=== PATIENT | female | born 1990 | race Hispanic/Latino ===

== ENCOUNTER 2019-09-30 09:08 | Day surgery (SDC) | payer OTHER ==
[~2019-09-30] VITALS: Ht 154.9 cm; Wt 55.0 kg
[~2019-09-30 09:08] MED LIST: LIDOCAINE 1% MDV 20ML VIAL SQ PRN; LR 1,000 ML IV ONE
[2019-09-30] MEDS ORDERED: PROAAER10 INH (09:28)
[2019-09-30 10:01] LABS: HEMOGLOBIN 13.4 g/dl (12.0-15.5); MEAN CORPUSCULAR HEMOGLOBIN 28.2 pg (27.0-33.0); MEAN CORPUSCULAR HGB CONC 31.9 g/dl (32.0-36.5); MEAN CORPUSCULAR VOLUME 88.2 fl (80.0-96.0); PLATELET COUNT, AUTOMATED 168 10^3/uL (150-450); RED BLOOD COUNT 4.76 10^6/uL (4.00-5.40); WHITE BLOOD COUNT 5.8 10^3/uL (4.0-10.0)
[2019-09-30 10:11] LABS: HCG, SERUM QUALITATIVE NEGATIVE (NEGATIVE)
[2019-09-30] MEDS ORDERED: ROCURONIUM BROMIDE 50 MG/5 ML VIAL As Ordered ONE (10:34)
[2019-09-30] MEDS ORDERED: LIDOCAINE 2% 100MG/5ML SDV (FOR ANES.) As Ordered ONE (10:34)
[2019-09-30] MEDS ORDERED: propofoL 200 MG/20 ML VIAL As Ordered ONE (10:34)
[2019-09-30] MEDS ORDERED: dexameTHASONE 4 MG/ML 1ML VIAL (J1100 PER 1MG) As Ordered ONE (10:34)
[2019-09-30] MEDS ORDERED: ONDANSETRON 4MG/2ML VIAL As Ordered ONE (10:34)
[2019-09-30] MEDS ORDERED: ACETAMINOPHEN 1000MG 100ML IV BTL (OFIRMEV) (J0131 PER 10MG) As Ordered ONE (10:34)
[2019-09-30] MEDS ORDERED: fentaNYL 250 MCG/5 ML INJECTION (J3010) As Ordered ONE (10:35)
[2019-09-30] MEDS ORDERED: MIDAZOLAM INJ 2MG/2ML VIAL (J2250 PER 1MG) As Ordered ONE (10:35)
[2019-09-30] MEDS ORDERED: BUPIVACAINE/EPIN 0.25% 30 ML VIAL As Ordered ONE (11:12)
[2019-09-30] MEDS ORDERED: ePHEDrine SULFATE 25 MG/5 ML(5MG/ML) SYRINGE As Ordered ONE (11:51)
[2019-09-30] MEDS ORDERED: SUGAMMADEX SODIUM 500 MG/5 ML VIAL (BRIDION) As Ordered ONE (12:10)
--- NOTE | 2019-09-30 12:42 | POST-OPPD ---
Postoperative Procedure Note Date Of Procedure: Sep 30, 2019 PREOPERATIVE DIAGNOSIS: 1. satisfied parity POSTOPERATIVE DIAGNOSIS: 1. satisfied parity FINDINGS: normal appearing uterus, bilateral ovaries and fallopian tubes. PROCEDURE: laparoscopic bilateral salpingectomy SURGEON: Skyla Carrillo DO MEDICAL BILLER: Regis Posada MD ANESTHESIA: General SPECIMENS: Bilateral fallopian tubes ESTIMATED BLOOD LOSS: 5cc REPLACED: 1100 cc LR DRAINS: 300cc urine COMPLICATIONS: none POSTOPERATIVE CONDITION: stable Laparoscopic findings: Normal appearing uterus, bilateral ovaries and fallopian tubes. Anterior cul-de-sac without lesion. Posterior cul-de-sac without lesion. Liver edge and gallbladder normal appearing. Description of procedure: The risks, benefits, indications and alternatives of the procedure were reviewed with the patient and informed written consent was obtained. The patient was taken to the operating room with IV running. She was placed under general anesthesia with endotracheal tube. Arms tucked. Patient placed in lithotomy. The abdomen, vagina and perineum were prepped and draped in the usual sterile fashion. Loyola inserted. Moist sponge stick placed vaginally for uterine manipulation. Small incision made in umbilicus. Veres needle introduced. Saline drop test confirmed intraabdominal placement. Abdo men insufflated with CO2. Five mm trocar introduced under direct visualization. Surveys reviews no bowel injury or bleeding. Two 5mm ports placed left lower abdomen with direct visualization. Findings as above. Ligasure device used to remove bilateral fallopian tubes. Surgical area inspected for hemostasis. Abdomen desuflated. Camera and instruments removed from abdomen. Incision sites closed with 4-O monocryl and dermabond. Loyola and sponge stick removed from the vagina. Count correct x 2. Patient was taken out of OR in stable condition. SKYLA CARRILLO DO Sep 30, 2019 12:37
[2019-09-30] MEDS ORDERED: ONDANSETRON 4MG/2ML VIAL IV PRN (12:45)
[2019-09-30] MEDS ORDERED: LR 1,000 ML IV SCH (12:45)
[2019-09-30] MEDS ORDERED: oxyCODONE 5MG TAB PO PRN (12:45)
[2019-09-30] MEDS ORDERED: HYDROMORPHONE HCL 0.5 MG/ 0.5 ML SYRINGE (J1170 PER 1) IV PRN (12:45)
[2019-09-30] MEDS ORDERED: fentaNYL 100 MCG/2 ML INJECTION (J3010) IV PRN (12:45)
[2019-09-30 13:55] VITALS: BP 113/79
== END 2019-09-30 14:00 | disposition home or self-care (01) ==
LOC: M SDC 09:08
PROVIDERS: ATTEND Obstetrics & Gynecology
DX: Z30.2 Encounter for sterilization (principal); J45.909 Unspecified asthma, uncomplicated; Z79.51 Long term (current) use of inhaled steroids; Z87.891 Personal history of nicotine dependence
CPT/HCPCS: 36415; 58661; 84703; 85027; 86850; 86900; 86901; 88302; J0131; J1100; J2250; J2405; J3010

== ENCOUNTER 2021-03-24 14:01 | Emergency (ER) | payer OTHER ==
[~2021-03-24] VITALS: Ht 154.9 cm; Wt 49.6 kg
[~2021-03-24 14:01] MED LIST changes: -LIDOCAINE 1% MDV 20ML VIAL SQ PRN; -LR 1,000 ML IV ONE; +PROAAER10 INH
[2021-03-24] MEDS ORDERED: FAMOTIDINE INJ 20MG/2ML VIAL (S0028 PER 1) IVP ONE (19:25)
[2021-03-24] MEDS ORDERED: diphenhydrAMINE 50MG/ML VIAL (J1200) IV ONE (19:25)
[2021-03-24] MEDS ORDERED: methylPREDNISolone 125MG 2ML VIAL IV ONE (19:25)
[2021-03-24] MEDS ORDERED: NS 1,000 ML IV ONE (19:25)
[2021-03-24] MEDS ORDERED: EPIN0.3I11 SQ (20:07)
[2021-03-24] MEDS ORDERED: PRED10TA2 (20:07)
[2021-03-24] MEDS ORDERED: HYDR-643 (20:07)
[2021-03-24] MEDS ORDERED: MONT10TA97 PO (20:07)
[2021-03-24 20:10] LABS: APPEARANCE, URINE HAZY (CLEAR); BACTERIA, URINE AUTO NEGATIVE (NEGATIVE); BASO % 0.4 % (0.0-1.0); BILIRUBIN, URINE AUTO NEGATIVE (NEGATIVE); BLOOD, URINE BLOOD NEGATIVE (NEGATIVE); COLOR, URINE YELLOW (YELLOW); EOS % 0.4 % (0.0-3.0); GLUCOSE, URINE (UA) AUTO NEGATIVE (NEGATIVE); HEMATOCRIT 41.7 % (36.0-47.0); HEMOGLOBIN 13.7 g/dl (12.0-15.5); KETONE, URINE AUTO TRACE mg/dL (NEGATIVE); LEUKOCYTE ESTERASE, URINE AUTO NEGATIVE (NEGATIVE); LYMPH # 1.2 10^3/uL (1.5-5.0); LYMPH % 14.8 % (24.0-44.0); MEAN CORPUSCULAR HEMOGLOBIN 28.3 pg (27.0-33.0); MEAN CORPUSCULAR HGB CONC 32.9 g/dl (32.0-36.5); MEAN CORPUSCULAR VOLUME 86.2 fl (80.0-96.0); MONO # 0.5 10^3/uL (0.0-0.8); MONO % 6.2 % (2.0-8.0); MUCUS, URINE SMALL (NEGATIVE); NEUTROPHILS % 77.4 % (36.0-66.0); NITRITE, URINE AUTO NEGATIVE (NEGATIVE); PLATELET COUNT, AUTOMATED 332 10^3/uL (150-450); PROTEIN, URINE AUTO NEGATIVE (NEGATIVE); RBC, URINE AUTO 3 /HPF (0-3); RED BLOOD COUNT 4.84 10^6/uL (4.00-5.40); SPECIFIC GRAVITY URINE AUTO 1.019 (1.002-1.035); SQUAMOUS EPITHELIAL CELL UR AU 0 /HPF (0-6); UROBILINOGEN, URINE AUTO 0.2 mg/dL (0.0-2.0); WBC, URINE AUTO 1 /HPF (0-3); WHITE BLOOD COUNT 7.8 10^3/uL (4.0-10.0)
[2021-03-24 20:38] LABS: ERYTHROCYTE SEDIMENTATION RATE 3 mm/hr (0-20)
[2021-03-24 20:40] LABS: ALBUMIN 4.3 GM/DL (3.2-5.2); ALT/SGPT 39 U/L (12-78); BILIRUBIN,DIRECT 0.1 MG/DL (0.0-0.2); BILIRUBIN,TOTAL 0.2 MG/DL (0.2-1.0); BLOOD UREA NITROGEN 14 MG/DL (7-18); CARBON DIOXIDE LEVEL 29 MEQ/L (21-32); CHLORIDE LEVEL 104 MEQ/L (98-107); CREATININE FOR GFR 0.66 MG/DL (0.55-1.30); GLOMERULAR FILTRATION RATE > 60.0 (>60); GLUCOSE, FASTING 113 MG/DL (70-100); POTASSIUM SERUM 4.4 MEQ/L (3.5-5.1); SODIUM LEVEL 138 MEQ/L (136-145); TOTAL PROTEIN 8.3 GM/DL (6.4-8.2)
[2021-03-24] MEDS ORDERED: PEPC1TAB5 PO (22:18)
[2021-03-24] MEDS ORDERED: MEDR4PAK PO (22:18)
[2021-03-24 22:24] VITALS: BP 132/88
== END 2021-03-24 22:28 | disposition home or self-care (01) ==
LOC: M ED 14:01
DX: R21 Rash and other nonspecific skin eruption (principal); L29.9 Pruritus, unspecified
CPT/HCPCS: 36415; 80048; 80076; 81001; 84702; 85025; 85652; 86140; 86780; 87798; 96361; 96374; 96375; 99284; J1200; J2930

== ENCOUNTER → 2024-10-26 | Outpatient (REF) | payer OTHER ==
[~2024-10-26] MED LIST changes: +EPIN0.3I11 SQ; +HYDR-643; +MEDR4PAK PO; +MONT10TA97 PO; +PEPC1TAB5 PO; +PRED10TA2
[2024-10-28 15:12] LABS: HPV APTIMA Not Detected (Not Detected)
== END ==
LOC: M PLALAB 09:50
PROVIDERS: ATTEND Obstetrics & Gynecology
DX: Z12.4 Encounter for screening for malignant neoplasm of cervix (principal)
CPT/HCPCS: 87624; G0123

== ENCOUNTER → 2024-12-16 | Outpatient (REF) | payer OTHER | LOC: M PLALAB 08:56 | PROVIDERS: ATTEND Physician Assistant | DX: B37.32 Chronic candidiasis of vulva and vagina (principal) ==

== ENCOUNTER → 2024-12-16 | Outpatient (CLI) | payer OTHER ==
[2024-12-16 11:13] LABS: ESTIMATED AVERAGE GLUCOSE 108.0 MG/DL (60-110)
== END ==
LOC: M PLALAB 09:10
PROVIDERS: ATTEND Physician Assistant
DX: N76.0 Acute vaginitis (principal); N77.1 Vaginitis, vulvitis and vulvovaginitis in diseases classified elsewhere